=== PATIENT | male | born 1950 | race Caucasian/White ===

== ENCOUNTER 2020-05-08 00:24 | Day surgery (SDC) | payer MEDICARE ==
[~2020-05-08 00:24] MED LIST: ASPI81CH; Fish Oil300 MG PO; LISI20 PO; METF500 PO; METO100ER PO; Percocet 10-321 EACH PO; SIMV40 PO
== END 2020-05-08 22:35 | disposition home or self-care (01) ==
LOC: WOUND 00:24
DX: T24.222D Burn of second degree of left knee, subsequent encounter (principal); T24.202D Burn of second degree of unspecified site of left lower limb, except ankle and foot, subsequent encounter; I10 Essential (primary) hypertension; Z79.84 Long term (current) use of oral hypoglycemic drugs; Z79.82 Long term (current) use of aspirin; Z79.899 Other long term (current) drug therapy; X08.8XXD Exposure to other specified smoke, fire and flames, subsequent encounter
CPT/HCPCS: G0463

== ENCOUNTER 2020-05-14 09:06 | Day surgery (SDC) | payer MEDICARE | END 2020-05-14 22:43 | disposition home or self-care (01) | LOC: WOUND 09:06 | DX: T24.322A Burn of third degree of left knee, initial encounter (principal); T24.232A Burn of second degree of left lower leg, initial encounter; I96 Gangrene, not elsewhere classified; I10 Essential (primary) hypertension; Z79.82 Long term (current) use of aspirin; Z79.84 Long term (current) use of oral hypoglycemic drugs; Z79.899 Other long term (current) drug therapy; X08.8XXA Exposure to other specified smoke, fire and flames, initial encounter ==

== ENCOUNTER 2020-05-28 00:23 | Day surgery (SDC) | payer MEDICARE | END 2020-05-28 22:57 | disposition home or self-care (01) | LOC: WOUND 00:23 | DX: T24.322D Burn of third degree of left knee, subsequent encounter (principal); T25.212D Burn of second degree of left ankle, subsequent encounter; I96 Gangrene, not elsewhere classified; I10 Essential (primary) hypertension; Z79.82 Long term (current) use of aspirin; Z79.84 Long term (current) use of oral hypoglycemic drugs; Z79.899 Other long term (current) drug therapy; X08.8XXD Exposure to other specified smoke, fire and flames, subsequent encounter | CPT/HCPCS: G0463 ==

== ENCOUNTER 2020-06-05 00:36 | Day surgery (SDC) | payer MEDICARE | END 2020-06-05 22:46 | disposition home or self-care (01) | LOC: WOUND 00:36 | DX: T24.322D Burn of third degree of left knee, subsequent encounter (principal); T24.232D Burn of second degree of left lower leg, subsequent encounter; I10 Essential (primary) hypertension; X19.XXXD Contact with other heat and hot substances, subsequent encounter | CPT/HCPCS: G0463 ==

== ENCOUNTER 2020-06-13 00:24 | Day surgery (SDC) | payer MEDICARE ==
[~2020-06-13 00:24] MED LIST changes: -ASPI81CH; +ASPI81CH PO; +FISH OIL 1,2001 EAC7 PO; -Fish Oil300 MG PO
[2020-07-03] MEDS ORDERED: MELO7.5 PO (11:07)
[2020-07-03] MEDS ORDERED: IBUP800 PO (11:07)
[2020-07-03] MEDS ORDERED: FLUTICASONE-SA1 EAC1 INH (11:07)
== END 2020-06-13 22:46 | disposition home or self-care (01) ==
LOC: WOUND 00:24
DX: T24.322D Burn of third degree of left knee, subsequent encounter (principal); T24.232D Burn of second degree of left lower leg, subsequent encounter; I10 Essential (primary) hypertension; X08.8XXD Exposure to other specified smoke, fire and flames, subsequent encounter
CPT/HCPCS: A9270

== ENCOUNTER 2020-06-20 00:41 | Day surgery (SDC) | payer MEDICARE ==
[2020-07-03] MEDS ORDERED: IBUP800 PO (11:07)
[2020-07-03] MEDS ORDERED: FLUTICASONE-SA1 EAC1 INH (11:07)
[2020-07-03] MEDS ORDERED: MELO7.5 PO (11:07)
== END 2020-06-20 23:08 | disposition home or self-care (01) ==
LOC: WOUND 00:41
DX: T24.222A Burn of second degree of left knee, initial encounter (principal); T24.232A Burn of second degree of left lower leg, initial encounter; I96 Gangrene, not elsewhere classified; I10 Essential (primary) hypertension; Z79.899 Other long term (current) drug therapy; Z79.84 Long term (current) use of oral hypoglycemic drugs; Z79.82 Long term (current) use of aspirin; X08.8XXA Exposure to other specified smoke, fire and flames, initial encounter
CPT/HCPCS: A9270

== ENCOUNTER → 2020-06-27 | Outpatient (CLI) | payer MEDICARE ==
[~2020-06-27] MED LIST changes: +FLUTICASONE-SA1 EAC1 INH; +IBUP800 PO; +MELO7.5 PO
[2020-06-30 13:27] LABS: Stool Occult Bld Immuno 1 Negative (NEGATIVE)
== END | disposition home or self-care (01) ==
LOC: LAB 11:00 → LAB SHORT 11:00
PROVIDERS: Family Medicine
DX: D64.9 Anemia, unspecified (principal)
CPT/HCPCS: G0328

== ENCOUNTER 2020-06-29 00:43 | Day surgery (SDC) | payer MEDICARE ==
[~2020-06-29 00:43] MED LIST changes: -FLUTICASONE-SA1 EAC1 INH; -IBUP800 PO; -MELO7.5 PO
[2020-07-03] MEDS ORDERED: MELO7.5 PO (11:07)
[2020-07-03] MEDS ORDERED: IBUP800 PO (11:07)
[2020-07-03] MEDS ORDERED: FLUTICASONE-SA1 EAC1 INH (11:07)
== END 2020-06-29 22:43 | disposition home or self-care (01) ==
LOC: WOUND 00:43
DX: T24.322A Burn of third degree of left knee, initial encounter (principal); T24.202A Burn of second degree of unspecified site of left lower limb, except ankle and foot, initial encounter; I10 Essential (primary) hypertension; X08.8XXA Exposure to other specified smoke, fire and flames, initial encounter
CPT/HCPCS: A9270

== ENCOUNTER 2020-07-05 00:21 | Day surgery (SDC) | payer MEDICARE ==
[~2020-07-05 00:21] MED LIST changes: +FLUTICASONE-SA1 EAC1 INH; +IBUP800 PO; +MELO7.5 PO
== END 2020-07-05 23:45 | disposition home or self-care (01) ==
LOC: WOUND 00:21
DX: T24.202D Burn of second degree of unspecified site of left lower limb, except ankle and foot, subsequent encounter (principal); I10 Essential (primary) hypertension
CPT/HCPCS: A9270

== ENCOUNTER 2020-07-09 07:04 | Day surgery (SDC) | payer MEDICARE ==
[~2020-07-09] VITALS: Ht 172.7 cm; Wt 92.8 kg
--- NOTE | 2020-07-09 08:15 | NUR ---
PT AMBULATES TO DAY SURGERY c LIMPED GAIT. History, Chart, Medications and Allergies reviewed before start of procedure. Lungs clear T/O to Auscultation. Patient confirms NPO status and agrees with scheduled surgery. DRESSING IN PLACE ON LLE. PILLOW TO LE FOR COMFORT.
--- NOTE | 2020-07-09 09:13 | NUR ---
PT VOIDS APPROX 200 CC OF CLEAR YELLOW URINE. WOUND VAC INFO FAXED TO OFFICE.
--- NOTE | 2020-07-09 12:26 | NUR ---
WOUND VAC NOTED INTACT TO LLE AND TURNED ON TO CONTINUOUS 100 MMHG SETTING. LEG IMMOBILIZER INTACT OVER MAX WRAP. UNABLE TO VISULIZED SURGICAL DRESSING. DENIES PAIN OR NAUSEA. NO C/O VERBALIZED.
--- NOTE | 2020-07-09 12:38 | NUR ---
DRINKING SIPS OF GRAPE JUICE.
--- NOTE | 2020-07-09 13:21 | NUR ---
VSS. TOLERATING PO FLUIDS. Discharge instructions reviewed with patient. Patient verbalizes understanding. Copy given to patient to take home. Wound vac supplies and instrctions given to patient. Patient instructed to call Dr. Douglass if he has any concerns with his wound vac. He has a follow-up appoint this with Dr. Douglass.
--- NOTE | 2020-07-09 13:27 | NUR ---
UP TO STANDING WITHOUT DIZZINESS.
--- NOTE | 2020-07-09 13:51 | NUR ---
1137- TRANSFER TO CAR VIA W/C AND LLE ELEVATED AND STRAIGHT.
== END 2020-07-09 13:37 | disposition home or self-care (01) ==
LOC: ORSCMMR 07:04 → ORD 09:15 → ORSCMMR 13:37
PROVIDERS: Surgery
PROC: 0JBP0ZZ Excision of Left Lower Leg Subcutaneous Tissue and Fascia, Open Approach (ICD-10-PCS; principal; 2020-07-09 09:15)
DX: T24.202A Burn of second degree of unspecified site of left lower limb, except ankle and foot, initial encounter (principal); I10 Essential (primary) hypertension; I25.10 Atherosclerotic heart disease of native coronary artery without angina pectoris; J45.909 Unspecified asthma, uncomplicated; E11.9 Type 2 diabetes mellitus without complications; E78.5 Hyperlipidemia, unspecified; I73.00 Raynaud's syndrome without gangrene; Z79.899 Other long term (current) drug therapy; Z79.84 Long term (current) use of oral hypoglycemic drugs
CPT/HCPCS: A9270; J0171; J0330; J0690; J1100; J2250; J2370; J2405; J2704; J2765; J3010; J7120

== ENCOUNTER 2020-12-30 12:02 | Emergency (ER) | payer MEDICARE ==
[~2020-12-30] VITALS: Ht 172.7 cm; Wt 90.7 kg
[2020-12-30 17:13] LABS: Alanine Aminotransfer (ALT/SGP 39 U/L (12-78); Albumin, Blood 4.1 g/dL (3.4-5.0); Alk Phos 69 U/L (50-136); Anion Gap 5 mmol/L (6-16); Aspartate Aminotrans (AST/SGOT 27 U/L (12-37); Bilirubin, Total 0.4 mg/dL (0.1-1.0); Blood Urea Nitrogen 19 mg/dL (8-24); Bun/Creatinine Ratio 24.4 (12.0-20.0); CO2, Blood 26 mmol/L (21-32); Calcium, Blood 9.6 mg/dL (8.5-10.1); Chloride, Blood 105 mmol/L (98-108); Creatinine, Blood 0.78 mg/dL (0.60-1.20); Glomerular Filtration Rate >60 (60-); Glucose, Blood 128 mg/dL (70-99); Potassium, Blood 4.4 mmol/L (3.5-5.5); Sodium, Blood 136 mmol/L (136-145); Total Protein, Blood 8.1 g/dL (6.4-8.2)
== END 2020-12-30 21:57 | disposition home or self-care (01) ==
LOC: ER 12:02
PROVIDERS: Physician Assistant
DX: H33.21 Serous retinal detachment, right eye (principal); I10 Essential (primary) hypertension; E78.5 Hyperlipidemia, unspecified; Z79.899 Other long term (current) drug therapy
CPT/HCPCS: 36415; 70496; 70498; 80053; 99284-25; Q9967

== ENCOUNTER 2021-12-16 08:07 | Day surgery (SDC) | payer MEDICARE ==
[~2021-12-16] VITALS: Ht 172.7 cm; Wt 96.9 kg
[~2021-12-16 08:07] MED LIST changes: +Percocet 5-3251 EACH PO
--- NOTE | 2021-12-16 19:06 | NUR ---
SHIFT SUMMARY PATIENT NEW ADMIT TO UNIT POST OP R AZUL. ALERT AND ORIENTED. TOLERATING REGULAR DIET AND LIQUIDS. SALINE LOCKED. VOIDING WELL. AMBULATING IN HALLS WITH FWW AND SEEN BY PT. PAIN CONTROLLED WITH PO PAIN MEDS. BULKY DRESSING TO RIGHT HIP C/D/I. POST OP VSS. REPORT GIVEN TO REGULATORY ASSOCIATE RN.
[2021-12-17 04:27] LABS: BASOPHILS ABSOLUTE AUTO 0.01 K/mm3 (0.00-0.23); BASOPHILS PERCENT AUTO 0 % (0-2); EOSINOPHILS ABSOLUTE AUTO 0.01 K/mm3 (0.00-0.68); EOSINOPHILS PERCENT AUTO 0 % (0-6); Hematocrit 34.4 % (37.0-53.0); Hemoglobin 11.4 g/dL (13.5-17.5); IMMATURE GRAN ABSOLUTE AUTO 0.04 K/mm3 (0.00-0.10); IMMATURE GRAN PERCENT AUTO 0 % (0-1); LYMPHOCYTES ABSOLUTE AUTO 1.13 K/mm3 (0.84-5.20); LYMPHOCYTES PERCENT AUTO 9 % (21-46); MONOCYTES ABSOLUTE AUTO 1.17 K/mm3 (0.16-1.47); MONOCYTES PERCENT AUTO 10 % (4-13); Mean Corpuscular HGB 30.6 pg (26.0-34.0); Mean Corpuscular HGB Conc 33.1 g/dL (31.5-36.5); Mean Corpuscular Volume 92 fL (80-100); Mean Platelet Volume 10.3 fL (9.1-12.4); NEUTROPHILS PERCENT AUTO 81 % (41-73); Platelet Count 188 K/mm3 (150-400); RDW Standard Deviation 43.8 fL (35.1-46.3); Red Blood Cell Count 3.73 M/mm3 (4.30-5.90); White Blood Cell Count 12.16 K/mm3 (4.00-11.30)
--- NOTE | 2021-12-17 04:36 | NUR ---
SHIFT SUMMARY NO ACUTE CHANGES THIS SHIFT. PT SLEPT WELL. BULKY DRESSING TO R HIP REMAINS CDI WITH POLAR PACK IN PLACE. UP WITH 1 ASSIST USING FWW + GB TO BRP. PASTOR REG DIET. IV SL. VOIDING SPONTANEOUSLY. USES CALL LIGHT APPROPRIATELY. PT PLANNING TO DISCHARGE HOME TODAY AFTER CLEARING THERAPIES.
[2021-12-17 05:46] LABS: Bun/Creatinine Ratio 23.6 (12.0-20.0); Calcium, Blood 8.1 mg/dL (8.5-10.1); Creatinine, Blood 1.06 mg/dL (0.60-1.20); Magnesium, Blood 1.5 mg/dL (1.6-2.4); Potassium, Blood 4.7 mmol/L (3.5-5.5)
[2021-12-17] MEDS ORDERED: Aspir 8181 MG PO (10:47)
[2021-12-17] MEDS ORDERED: SULTRIDS PO (10:48)
[2021-12-17] MEDS ORDERED: PROM25 PO (10:48)
--- NOTE | 2021-12-17 13:00 | NUR ---
DISCHARGE PT AND SPOUSE PROVIDED WITH WRITTEN AND VERBAL DISCHARGE INSTRUCTIONS; THEY REPORTED UNDERSTANDING AFTER QUESTIONS WERE ANSWERED. CLEAN DRESSINGS PROVIDED. PT MET ALL GOALS PRIOR TO DISCHARGE INCLUDING PAIN MANAGED WITH PO PAIN MEDICATION, ABLE TO VOID, TOLERATING PO AND PT CLEARED THERAPY. PT WAS ASSISTED OUT IN W/C AT APPROXIMATELY 1144.
== END 2021-12-17 12:30 | disposition home or self-care (01) ==
LOC: ORSCMMR 08:07 → SURS 15:35 → ORSCMMR 12-17 12:30
PROVIDERS: Orthopaedic Surgery
PROC: 0SR90JA Replacement of Right Hip Joint with Synthetic Substitute, Uncemented, Open Approach (ICD-10-PCS; principal; 2021-12-16 12:00)
PROC: 8E0YXBZ Computer Assisted Procedure of Lower Extremity (ICD-10-PCS; principal; 2021-12-16 12:00)
DX: M16.11 Unilateral primary osteoarthritis, right hip (principal); I10 Essential (primary) hypertension; Z79.899 Other long term (current) drug therapy; E66.9 Obesity, unspecified; Z68.34 Body mass index [BMI] 34.0-34.9, adult
CPT/HCPCS: 36415; 72170; 80048; 83735; 85025; 94640; 94664; 94760; 97110; 97110-CQ; 97116-CQ; 97161; 97165; 97530; 97530-CQ; 97535; A9270; C1713; C1776; J0171; J0690; J0735; J1100; J1885; J2250; J2370; J2405; J2704; J2795; J3010; J3475; J7120

== ENCOUNTER 2022-10-06 10:55 | Day surgery (SDC) | payer MEDICARE ==
[~2022-10-06] VITALS: Ht 172.7 cm; Wt 218.4 kg
[~2022-10-06 10:55] MED LIST changes: +Aspir 8181 MG PO; +PROM25 PO; +SULTRIDS PO
--- NOTE | 2022-10-06 13:29 | NUR ---
10/06/22 [facility] ALERTED THAT PATIENT HAS CONTINUED TAKING HIS MELOXICAM AND TOOK IT THIS AM, PER DR ABREU OK TO PROCEED.
[2022-10-06 16:33] VITALS: BP 118/90
== END 2022-10-06 17:20 | disposition home or self-care (01) ==
LOC: ORSCSDS 10:55
PROVIDERS: Podiatrist Foot & Ankle Surgery
PROC: 0SGJ04Z Fusion of Left Tarsal Joint with Internal Fixation Device, Open Approach (ICD-10-PCS; principal; 2022-10-06 13:00)
PROC: 0QPH04Z Removal of Internal Fixation Device from Left Tibia, Open Approach (ICD-10-PCS; principal; 2022-10-06 13:00)
DX: M19.272 Secondary osteoarthritis, left ankle and foot (principal); T84.84XA Pain due to internal orthopedic prosthetic devices, implants and grafts, initial encounter; I10 Essential (primary) hypertension; J45.909 Unspecified asthma, uncomplicated; E78.5 Hyperlipidemia, unspecified; E11.9 Type 2 diabetes mellitus without complications; Z79.899 Other long term (current) drug therapy; Z79.82 Long term (current) use of aspirin; E66.9 Obesity, unspecified; Z68.33 Body mass index [BMI] 33.0-33.9, adult
CPT/HCPCS: A9270; C1734; J0171; J0690; J1100; J1885; J2001; J2250; J2405; J2704; J2795; J3010; J7120

== ENCOUNTER 2022-12-31 08:21 | Day surgery (SDC) | payer MEDICARE ==
[~2022-12-31] VITALS: Ht 172.7 cm; Wt 95.7 kg
[2022-12-31] MEDS ORDERED: HYDROCODONE-AC1 EA19 PO (08:56)
[2022-12-31 10:26] VITALS: BP 105/67
== END 2022-12-31 10:31 | disposition home or self-care (01) ==
LOC: ORSCSDS 08:21
PROVIDERS: Internal Medicine Gastroenterology
PROC: 0DBL8ZX Excision of Transverse Colon, Via Natural or Artificial Opening Endoscopic, Diagnostic (ICD-10-PCS; principal; 2022-12-31 09:45)
DX: K62.5 Hemorrhage of anus and rectum (principal); R19.4 Change in bowel habit; Z86.010 Personal history of colon polyps; D12.3 Benign neoplasm of transverse colon; K64.8 Other hemorrhoids; Z83.71 Family history of colonic polyps; E11.9 Type 2 diabetes mellitus without complications; Z87.891 Personal history of nicotine dependence; Z79.899 Other long term (current) drug therapy
CPT/HCPCS: 82947; 88305; J2704; J7120